=== PATIENT | female | born 1975 | race Caucasian/White ===

== ENCOUNTER 2017-04-11 16:13 | Emergency (ER) | payer OTHER ==
[~2017-04-11] VITALS: Ht 162.6 cm; Wt 59.0 kg
[2017-04-11] MEDS ORDERED: PROCHLORPERAZINE EDISYLATE 10 MG/2 ML VIAL IV ONE (16:45)
[2017-04-11] MEDS ORDERED: IV NS 1000 ML 1,000 ML IV ONE (16:45)
[2017-04-11] MEDS ORDERED: ACETAMINOPHEN ES 500 MG TABLET ONE (16:49)
[2017-04-11] MEDS ORDERED: PROCHLORPERAZINE EDISYLATE 10 MG/2 ML VIAL ONE (16:49)
[2017-04-11] MEDS: ACETAMINOPHEN 325 MG TABLET PO ONE (16:51)
--- NOTE | 2017-04-11 17:01 | NUR ---
Patient is resting comfortably on gurney while using her personal electronic device, NAD
[2017-04-11] MEDS ORDERED: HYDROCODONE/APAP 5-325MG TABLET PO ONE (17:45)
[2017-04-11] MEDS ORDERED: HYDROCODONE/APAP 5-325MG TABLET ONE (18:05)
--- NOTE | 2017-04-11 18:12 | NUR ---
IV removed. Catheter intact and site benign. Pressure and 4x4 gauze applied to site. No bleeding noted. Patient discharged to home in stable conditon. Written and verbal after care instructions given to patient. Patient verbalizes understanding of instructions. Patient left ER with brisk steady gait.
[2017-04-11] MEDS ORDERED: ACETAMINOPHEN 650 MG/20.3 ML LIQUID UDC PO ONE (18:30)
== END 2017-04-11 18:12 | disposition home or self-care (01) ==
LOC: ER 16:14
DX: R51 Headache (principal)
CPT/HCPCS: A4663; J0780; J3490; J7030